=== PATIENT | female | born 1985 | race American Indian/Alaskan Native ===

== ENCOUNTER 2017-03-25 23:43 | Emergency (ER) | payer SELFPAY ==
[2017-03-25 23:52] VITALS: BMI 30.7
--- NOTE | 2017-03-26 00:49 | ED PDOC ---
Arrival/HPI <Erick Rubio - Last Filed: 03/26/17 00:55> - General Historian: Patient - History of Present Illness Time/Duration: Other (2 days) Symptom Onset: Sudden Symptom Course: Worsening Quality: Burning Severity Level: 2 <Micki Gibbs - Last Filed: 03/26/17 01:50> - General Chief Complaint: ENT Problem Time Seen by Provider: 03/26/17 00:46 - History of Present Illness Narrative History of Present Illness (Text): 03/26/17 00:46 31yr old female presents today with a 2 day history of sore throat. Patient describes a burning sensation in the throat that started after eating cake. Patient states the pain started shortly after eating cake that came from [place]. Patient questions whether it may have been made with something that irritated throat. She denies feeling of throat closing. Patient denies difficulty breathing or swallowing. Patient describes only a burning sensation worse with swallowing, worsening over the past 2 days. (Micki Gibbs) Past Medical History - Provider Review Nursing Documentation Reviewed: Yes - Travel History Have you recently traveled outside [place] w/in the past 3 mons?: No - Infectious Disease Hx of Infectious Diseases: None - Past Medical History Past Medical History: No Previous - Cardiac Hx Cardiac Disorders: No - Pulmonary Hx Respiratory Disorders: No - Neurological Hx Neurological Disorder: No - HEENT Hx HEENT Disorder: No - Renal Hx Renal Disorder: No - Endocrine/Metabolic Hx Endocrine Disorders: No Other/Comment: gestational diabetes - Hematological/Oncological Hx Blood Disorders: No - Integumentary Hx Dermatological Disorder: No - Musculoskeletal/Rheumatological Hx Musculoskeletal Disorders: No - Gastrointestinal Hx Gastrointestinal Disorders: No Hx Gastroesophageal Reflux: ("I HAD AN ULCER") - Genitourinary/Gynecological Hx Genitourinary Disorders: Yes Other/Comment: placenta previa/breast feeding - Psychiatric Hx Psychophysiologic Disorder: No Hx Substance Use: No - Past Surgical History Past Surgical History: No Previous - Surgical History Hx Section: Yes (X2) - Anesthesia Hx Anesthesia: No Hx Anesthesia Reactions: No Hx Malignant Hyperthermia: No - Suicidal Assessment Feels Threatened In Home Enviroment: No <Micki Gibbs - Last Filed: 03/26/17 01:50> Family/Social History - Physician Review Nursing Documentation Reviewed: Yes Family/Social History: Unknown Family HX Smoking Status: Never Smoked Hx Alcohol Use: No Hx Substance Use: No Hx Substance Use Treatment: No <Micki Gibbs - Last Filed: 03/26/17 01:50> Allergies/Home Meds <Erick Rubio - Last Filed: 03/26/17 00:55> <Micki Gibbs - Last Filed: 03/26/17 01:50> Allergies/Adverse Reactions: Allergies morphine Allergy (Verified 01/16/17 05:05) HEADACHE Review of Systems - Review of Systems Constitutional: absent: Fatigue, Fevers ENT: Sore Throat. absent: Sinus Congestion Respiratory: absent: SOB, Cough Cardiovascular: absent: Chest Pain, Palpitations Gastrointestinal: Other (acid reflux). absent: Abdominal Pain, Nausea, Vomiting Genitourinary Female: absent: Dysuria, Frequency, Hematuria Musculoskeletal: absent: Arthralgias, Back Pain, Neck Pain Skin: absent: Rash, Pruritis Neurological: absent: Headache, Dizziness Psychiatric: absent: Anxiety, Depression <Micki Gibbs - Last Filed: 03/26/17 01:50> Physical Exam Vital Signs Reviewed: Yes Temperature: Afebrile Blood Pressure: Normal Pulse: Regular Respiratory Rate: Normal Appearance: Positive for: Well-Appearing, Non-Toxic, Comfortable Pain Distress: None Mental Status: Positive for: Alert and Oriented X 3 - Systems Exam Head: Present: Atraumatic Conjunctiva: Present: Normal Ears: Present: Normal, NORMAL TM Mouth: Present: Moist Mucous Membranes Pharnyx: Present: ERYTHEMA. No: EXUDATE, TONSILS ENLARGED, Peritonsilar Swelling, Uvular Deviation, Muffled/Hoarse Voice, Strider, Soft Palate/Uvular Edema Nose (External): Present: Atraumatic Nose (Internal): Present: Normal Inspection Neck: Present: Normal Range of Motion, Trachea Midline. No: Lymphadenopathy Respiratory/Chest: Present: Clear to Auscultation, Good Air Exchange. No: Respiratory Distress, Accessory Muscle Use Cardiovascular: Present: Regular Rate and Rhythm, Normal S1, S2. No: Murmurs Neurological: Present: GCS=15, Speech Normal Skin: Present: Warm, Dry, Normal Color. No: Rashes Psychiatric: Present: Alert, Oriented x 3 <Micki Gibbs - Last Filed: 03/26/17 01:50> Vital Signs Temp Pulse Resp BP Pulse Ox 03/25/17 23:52 98.7 F 74 16 136/88 100 Medical Decision Making <Erick Rubio - Last Filed: 03/26/17 00:55> <Micki Gibbs - Last Filed: 03/26/17 01:50> ED Course and Treatment: 03/26/17 00:49 Patient is nontoxic well appearing in no distress. Vital signs are stable Tolerating p.o. fluids and solids Motrin 600 mg p.o. amoxicillin 500mg po pepcid po Decadron 10 mg IM Patient reassessment: Patient feeling better after medications, vital signs stable. Moist mucous membranes. I advised follow up with primary care physician within the next 2 days, advised to increase fluids take medications as prescribed and return if symptoms worsen persist or if new symptoms develop. advised f/u with ENt specialist. advised immediate return if symptoms worsen,persist or if new symptoms develop. IMPRESSION; pharyngitis Motrin every 6 hours as needed for pain/fever reduction Increase fluids Amoxicillin 3 times daily x10 days pepcid once daily Follow up primary care physician within the next 2 days Follow up with the ENT specialist within the next 2 days. Saltwater gargles, throat lozenges Return if symptoms worsen persist or if the symptoms develop (Micki Gibbs) - Medication Orders Current Medication Orders: Discontinued Medications Amoxicillin (Amoxil 500 Mg Cap) 500 mg PO STAT STA PRN Reason: Protocol Stop: 03/26/17 00:56 Last Admin: 03/26/17 01:21 Dose: 500 mg Dexamethasone (Decadron Inj) 10 mg IM STAT STA Stop: 03/26/17 00:57 Last Admin: 03/26/17 01:21 Dose: 10 mg Famotidine (Pepcid) 40 mg PO STAT STA Stop: 03/26/17 00:56 Last Admin: 03/26/17 01:21 Dose: 40 mg - PA / REMOVABLE PROSTHODONTIST / Resident Statement / has reviewed & agrees with the documentation as recorded. <Erick Rubio - Last Filed: 03/26/17 00:55> Disposition/Present on Arrival <Erick Rubio - Last Filed: 03/26/17 00:55> - Present on Arrival Any Indicators Present on Arrival: No History of DVT/PE: No History of Uncontrolled Diabetes: No Urinary Catheter: No History of Decub. Ulcer: No History Surgical Site Infection Following: None - Disposition Have Diagnosis and Disposition been Completed?: Yes Disposition Time: 01:49 Patient Plan: Discharge <Micki Gibbs - Last Filed: 03/26/17 01:50> - Disposition Diagnosis: Pharyngitis Disposition: HOME/ ROUTINE Condition: GOOD Additional Instructions: Motrin every 6 hours as needed for pain/fever reduction Increase fluids Amoxicillin 3 times daily x10 days pepcid once daily Follow up primary care physician within the next 2 days Follow up with the ENT specialist within the next 2 days. Saltwater gargles, throat lozenges Return if symptoms worsen persist or if the symptoms develop Prescriptions: Amoxicillin 500 mg PO TID #30 tab Famotidine [Pepcid] 20 mg PO DAILY #30 tab Ibuprofen [Motrin] 600 mg PO Q6H PRN #20 tab PRN Reason: pain/fever reduction Referrals: Barrett Glover DO [Staff Provider] - Follow up with primary [facility] [place] [Outside] - Follow up with primary Ana Hendrix MD [Staff Provider] - Follow up with primary Forms: WORK NOTE
[2017-03-26 02:03] VITALS: BP 130/82; PULSE 72; RESP 18; TEMP 98.4; O2SAT 99
== END 2017-03-26 02:03 | disposition home or self-care (01) ==
LOC: ED 23:43
DX: J02.9 Acute pharyngitis, unspecified (principal)
CPT/HCPCS: 96372; 99283; J1100

== ENCOUNTER 2017-09-18 21:01 | Emergency (ER) | payer SELFPAY ==
[2017-09-18 21:31] VITALS: TEMP 98.1
[2017-09-18 21:37] VITALS: BMI 28.1
--- NOTE | 2017-09-18 21:44 | ED PDOC ---
Arrival/HPI - General Chief Complaint: Chest Pain Time Seen by Provider: 09/18/17 21:33 Historian: Patient - History of Present Illness Narrative History of Present Illness (Text): 09/18/17 21:43 Cathleen Iyer is a 32 year old female, whose past medical history includes gestational diabetes, who presents to the ED complaining of intermittent chest heaviness since waking up this morning. Patient states she has experienced similar episodes previously, notes aspirin usually alleviates symptoms, but denies any significant relief after taking aspirin earlier today. Patient notes mother has a history of CAD with recent coronary stent placement a few years prior. Patient denies any fever, chills, shortness of breath, nausea , vomiting, diarrhea, back pain, neck pain, headache, dizziness, or any other complaints. Time/Duration: Other (this morning) Symptom Onset: Gradual Symptom Course: Unchanged, Intermittent Quality: Other (Heaviness) Activities at Onset: Light Context: Home Past Medical History - Provider Review Nursing Documentation Reviewed: Yes - Infectious Disease Hx of Infectious Diseases: None - Past Medical History Past Medical History: No Previous - Cardiac Hx Cardiac Disorders: No - Pulmonary Hx Respiratory Disorders: No - Neurological Hx Neurological Disorder: No - HEENT Hx HEENT Disorder: No - Renal Hx Renal Disorder: No - Endocrine/Metabolic Hx Endocrine Disorders: No Other/Comment: gestational diabetes - Hematological/Oncological Hx Blood Disorders: No - Integumentary Hx Dermatological Disorder: No - Musculoskeletal/Rheumatological Hx Musculoskeletal Disorders: No - Gastrointestinal Hx Gastrointestinal Disorders: No Hx Gastroesophageal Reflux: ("I HAD AN ULCER") - Genitourinary/Gynecological Hx Genitourinary Disorders: Yes Other/Comment: placenta previa/breast feeding - Psychiatric Hx Psychophysiologic Disorder: No Hx Substance Use: No - Past Surgical History Past Surgical History: No Previous - Surgical History Hx Section: Yes (X2) - Anesthesia Hx Anesthesia: No Hx Anesthesia Reactions: No Hx Malignant Hyperthermia: No - Suicidal Assessment Feels Threatened In Home Enviroment: No Family/Social History - Physician Review Nursing Documentation Reviewed: Yes Family/Social History: Unknown Family HX Smoking Status: Never Smoked Hx Alcohol Use: No Hx Substance Use: No Hx Substance Use Treatment: No Allergies/Home Meds Allergies/Adverse Reactions: Allergies morphine Allergy (Verified 01/16/17 05:05) HEADACHE Home Medications: Home Meds Medication Instructions Recorded Confirmed No Known Home Med 09/18/17 09/18/17 Review of Systems - Physician Review All systems were reviewed & negative as marked: Yes - Review of Systems Constitutional: Normal. absent: Fevers Eyes: Normal ENT: Normal Respiratory: Normal. absent: SOB, Cough Cardiovascular: Chest Pain Gastrointestinal: Normal. absent: Abdominal Pain, Diarrhea, Nausea, Vomiting Genitourinary Female: Normal. absent: Dysuria, Frequency, Hematuria, Urine Output Changes Musculoskeletal: Normal. absent: Back Pain, Neck Pain Skin: Normal. absent: Rash Neurological: Normal. absent: Headache, Dizziness Endocrine: Normal Hemo/Lymphatic: Normal Psychiatric: Normal Physical Exam Vital Signs Reviewed: Yes Vital Signs Temp Pulse Resp BP Pulse Ox 09/18/17 23:16 71 16 107/65 99 09/18/17 21:31 98.1 F 70 18 112/78 100 Temperature: Afebrile Blood Pressure: Normal Pulse: Regular Respiratory Rate: Normal Appearance: Positive for: Well-Appearing, Non-Toxic, Comfortable Pain Distress: None Mental Status: Positive for: Alert and Oriented X 3 - Systems Exam Head: Present: Atraumatic, Normocephalic Pupils: Present: PERRL Extroacular Muscles: Present: EOMI Conjunctiva: Present: Normal Mouth: Present: Moist Mucous Membranes Neck: Present: Normal Range of Motion Respiratory/Chest: Present: Clear to Auscultation, Good Air Exchange. No: Respiratory Distress, Accessory Muscle Use Cardiovascular: Present: Regular Rate and Rhythm, Normal S1, S2. No: Murmurs Abdomen: Present: Normal Bowel Sounds. No: Tenderness, Distention, Peritoneal Signs Back: Present: Normal Inspection Upper Extremity: Present: Normal Inspection. No: Cyanosis, Edema Lower Extremity: Present: Normal Inspection. No: Edema Neurological: Present: GCS=15, CN II-XII Intact, Speech Normal Skin: Present: Warm, Dry, Normal Color. No: Rashes Psychiatric: Present: Alert, Oriented x 3, Normal Insight, Normal Concentration Medical Decision Making ED Course and Treatment: 09/18/17 21:43 Impression: 32 year old female c/o intermittent chest heaviness. Plan: -- EKG -- CXR -- Labs, cardiac enzymes, D-dimer -- Reassess and disposition Progress Notes: Reviewed EKG, NSR at [address] bpm[address] Non-specific ST/T wave changes. 09/18/17 23:48 Reviewed Chest X ray. Shows no acute processes. 09/19/17 00:34 Discussed results and plan with pt. Pt was offered hospital admission for further evaluation of symptoms. Pt states she does not wish to stay. Pt was explained the risks of leaving against medical advice including, but not limited to, NM and . Patient is choosing to leave against medical advice. I have personally explained to the patient that choosing to do so may result in permanent bodily harm or . I have discussed at great length that without further evaluation and monitoring there may be unforeseen circumstances and/or deterioration causing permanent bodily harm or as a result of their choice. The patient is alert, oriented, and shows the mental capacity to make clear decisions regarding the patients health care at this time. The patient continues to wish to leave against medical advice. Patient is aware of the importance of following up as instructed. The patient has been advised that they should return to the ED immediately if they change their mind at any time, or if their condition begins to change or worsen in any way. 09/19/17 00:36 - Lab Interpretations Lab Results: 09/18/17 22:25 09/18/17 22:25 Lab Results 09/18/17 22:25: WBC 8.7 D, RBC 4.23, Hgb 13.0, Hct 40.1, MCV 94.8, MCH 30.7, MCHC 32.4, RDW 13.2, Plt Count 190, MPV 12.1 H 09/18/17 22:25: Sodium 138, Potassium 3.9, Chloride 101, Carbon Dioxide 30, Anion Gap 12, BUN 9, Creatinine 0.7, Est GFR ( Amer) > 60, Est GFR (Non- Af Amer) > 60, Random Glucose 104, Calcium 9.7, Total Bilirubin 0.6, AST 26, ALT 29, Alkaline Phosphatase 63, Lactate Dehydrogenase 422, Total Creatine Kinase 157, Troponin I < 0.01 D, Total Protein 7.7, Albumin 4.3, Globulin 3.4, Albumin/Globulin Ratio 1.2 09/18/17 22:25: PT 13.7 H, INR 1.25 H, APTT 28.5, D-Dimer, Quantitative < 200 I have reviewed the lab results: Yes - RAD Interpretation Radiology Orders: 09/18/17 21:44 CHEST PORTABLE [RAD] Stat Subsystems Engineer: ED Physician - EKG Interpretation Interpreted by ED Physician: Yes Type: 12 lead EKG - Medication Orders Current Medication Orders: Discontinued Medications Aspirin (Aspirin) 325 mg PO ONCE STA Stop: 09/18/17 23:41 Last Admin: 09/19/17 00:20 Dose: 325 mg - Scribe Statement The provider has reviewed the documentation as recorded by the Angelina North Provider Scribe Attestation: All medical record entries made by the Scribe were at my direction and personally dictated by me. I have reviewed the chart and agree that the record accurately reflects my personal performance of the history, physical exam, medical decision making, and the department course for this patient. I have also personally directed, reviewed, and agree with the discharge instructions and disposition. Disposition/Present on Arrival - Present on Arrival Any Indicators Present on Arrival: No History of DVT/PE: No History of Uncontrolled Diabetes: No Urinary Catheter: No History of Decub. Ulcer: No History Surgical Site Infection Following: None - Disposition Have Diagnosis and Disposition been Completed?: Yes Diagnosis: Chest pain Disposition: AGAINST MEDICAL ADVICE Disposition Time: 00:34 Patient Problems: Current Active Problems Problem Status Onset Chest pain Acute Condition: STABLE Discharge Instructions (ExitCare): Chest Pain (ED) Referrals: Ruth Amor, [Primary Care Provider] - Follow up with primary Forms: [employer] (German)
[2017-09-18 22:48] LABS: HEMATOCRIT 40.1 % (36.0-48.0); MEAN CELL VOLUME 94.8 fl (80.0-105.0); MEAN CORPUSCULAR HEMOGLOBIN 30.7 pg (25.0-35.0); MEAN CORPUSCULAR HGB CONC 32.4 g/dl (31.0-37.0); MEAN PLATELET VOLUME 12.1 fl (7.0-11.0); RED CELL DISTRIBUTION WIDTH 13.2 % (11.5-14.5); WHITE BLOOD COUNT 8.7 10^3/ul (4.5-11.0)
[2017-09-18 22:49] LABS: ALB/GLOB RATIO 1.2 (1.1-1.8); ALKALINE PHOSPHATASE 63 U/L (38-126); ALT/SGPT 29 U/L (7-56); AST/SGOT 26 U/L (14-36); BILIRUBIN,TOTAL 0.6 mg/dL (0.2-1.3); BLOOD UREA NITROGEN 9 mg/dL (7-21); CALCIUM 9.7 mg/dL (8.4-10.5); CARBON DIOXIDE 30 mmol/L (21-33); CHLORIDE 101 mmol/L (98-107); GFR AFRICAN-AMERICAN > 60; GLUCOSE,RANDOM 104 mg/dL (70-110); POTASSIUM 3.9 mmol/L (3.6-5.0); SODIUM 138 mmol/L (132-148); TOTAL PROTEIN 7.7 g/dL (5.8-8.3)
[2017-09-18 22:58] LABS: D DIMER < 200 ng/mL (0-243); INR 1.25 (0.93-1.08); PARTIAL THROMBOPLASTIN TIME 28.5 Seconds (25.1-36.5)
[2017-09-18 23:04] LABS: TROPONIN I < 0.01 ng/mL
[2017-09-18 23:16] VITALS: RESP 16
[2017-09-19 01:40] VITALS: BP 117/82; PULSE 75; O2SAT 100
--- NOTE | 2017-09-19 08:44 | RAD ---
HISTORY: chest pain COMPARISON: 01/16/2017 FINDINGS: LUNGS: The lungs are well inflated and clear. PLEURA: No significant pleural effusion identified, no pneumothorax apparent. CARDIOVASCULAR: Normal. OSSEOUS STRUCTURES: No significant abnormalities. VISUALIZED UPPER ABDOMEN: Normal. OTHER FINDINGS: None. IMPRESSION: No active pulmonary disease.
--- NOTE | 2017-09-19 22:10 | CARD ---
APPROVED REPORT EKG Measurement Heart [id number] <Conclusion> Normal sinus rhythm normal ECG
== END 2017-09-19 00:15 | disposition left against medical advice (07) ==
LOC: ED 21:01
DX: R07.9 Chest pain, unspecified (principal); Z82.49 Family history of ischemic heart disease and other diseases of the circulatory system

== ENCOUNTER 2017-12-22 21:10 | Emergency (ER) | payer SELFPAY ==
[2017-12-22 22:25] VITALS: BMI 30.7
[2017-12-22 22:26] VITALS: RESP 18; TEMP 98.9; O2SAT 100
[2017-12-22] MEDS ORDERED: Sodium Chloride 0.9% 1,000 ML IV STA (22:35)
--- NOTE | 2017-12-22 22:36 | ED PDOC ---
Arrival/HPI - General Chief Complaint: Abdominal Pain Time Seen by Provider: 12/22/17 21:58 Historian: Patient - History of Present Illness Narrative History of Present Illness (Text): 12/22/17 22:33 Cathleen Iyer is a 32 year old female, whose past medical history includes gestational diabetes, who presents to the ED complaining of abdominal pain. Patient states she has been experienced sharp RLQ abdominal pain for the past 2 days. Patient denies any fever, chills, chest pain, nausea, vomiting, diarrhea, urinary symptoms, back pain, or any other complaints. Time/Duration: < week (2 days) Symptom Onset: Gradual Symptom Course: Unchanged Activities at Onset: Light Context: Work Past Medical History - Provider Review Nursing Documentation Reviewed: Yes - Infectious Disease Hx of Infectious Diseases: None - Past Medical History Past Medical History: No Previous - Cardiac Hx Cardiac Disorders: No - Pulmonary Hx Respiratory Disorders: No - Neurological Hx Neurological Disorder: No - HEENT Hx HEENT Disorder: No - Renal Hx Renal Disorder: No - Endocrine/Metabolic Hx Endocrine Disorders: No Other/Comment: gestational diabetes - Hematological/Oncological Hx Blood Disorders: No - Integumentary Hx Dermatological Disorder: No - Musculoskeletal/Rheumatological Hx Musculoskeletal Disorders: No - Gastrointestinal Hx Gastrointestinal Disorders: No Hx Gastroesophageal Reflux: ("I HAD AN ULCER") - Genitourinary/Gynecological Hx Genitourinary Disorders: Yes Other/Comment: placenta previa/breast feeding - Psychiatric Hx Psychophysiologic Disorder: No Hx Substance Use: No - Past Surgical History Past Surgical History: No Previous - Surgical History Hx Section: Yes (X2) - Anesthesia Hx Anesthesia: Yes Hx Anesthesia Reactions: No Hx Malignant Hyperthermia: No - Suicidal Assessment Feels Threatened In Home Enviroment: No Family/Social History - Physician Review Nursing Documentation Reviewed: Yes Family/Social History: Unknown Family HX Smoking Status: Never Smoked Hx Alcohol Use: No Hx Substance Use: No Hx Substance Use Treatment: No Allergies/Home Meds Allergies/Adverse Reactions: Allergies morphine Allergy (Verified 01/16/17 05:05) HEADACHE Review of Systems - Physician Review All systems were reviewed & negative as marked: Yes - Review of Systems Constitutional: Normal. absent: Fevers Eyes: Normal ENT: Normal Respiratory: Normal. absent: SOB, Cough Cardiovascular: Normal Gastrointestinal: Abdominal Pain. absent: Diarrhea, Nausea, Vomiting Genitourinary Female: Normal. absent: Dysuria, Frequency, Hematuria, Urine Output Changes Musculoskeletal: Normal. absent: Back Pain, Neck Pain Skin: Normal. absent: Rash Neurological: Normal. absent: Headache, Dizziness Endocrine: Normal Hemo/Lymphatic: Normal Psychiatric: Normal Physical Exam Vital Signs Reviewed: Yes Vital Signs Temp Pulse Resp BP Pulse Ox 12/22/17 22:26 98.9 F 76 18 117/78 100 Temperature: Afebrile Blood Pressure: Normal Pulse: Regular Respiratory Rate: Normal Appearance: Positive for: Well-Appearing, Non-Toxic, Comfortable Pain Distress: None Mental Status: Positive for: Alert and Oriented X 3 - Systems Exam Head: Present: Atraumatic, Normocephalic Pupils: Present: PERRL Extroacular Muscles: Present: EOMI Conjunctiva: Present: Normal Mouth: Present: Moist Mucous Membranes Neck: Present: Normal Range of Motion Respiratory/Chest: Present: Clear to Auscultation, Good Air Exchange. No: Respiratory Distress, Accessory Muscle Use Cardiovascular: Present: Regular Rate and Rhythm, Normal S1, S2. No: Murmurs Abdomen: Present: Tenderness (mild right lower abdomen), Normal Bowel Sounds. No: Distention, Peritoneal Signs, Rebound, Guarding, Hernias Back: Present: Normal Inspection Upper Extremity: Present: Normal Inspection. No: Cyanosis, Edema Lower Extremity: Present: Normal Inspection. No: Edema Neurological: Present: GCS=15, CN II-XII Intact, Speech Normal, Motor Func Grossly Intact, Normal Sensory Function Skin: Present: Warm, Dry, Normal Color. No: Rashes Psychiatric: Present: Alert, Oriented x 3, Normal Insight, Normal Concentration Medical Decision Making ED Course and Treatment: 12/22/17 22:33 Impression: 32 year old female complaining of RLQ pain for 2 days. Plan: -- CT Abdomen and Pelvis with IV contrast -- Labs, lipase -- Urinalysis -- IV fluids -- Reassess and disposition Prior Visits: Notes and results from previous visits were reviewed. Progress Notes: 12/23/17 01:37 CT Abdomen and Pelvis shows: Lower thorax: There is bibasilar atelectasis. Small hiatal hernia. ABDOMEN: Liver: There are hepatic hypodensities too small to characterize. These were seen on prior examination from April 24, 2016 and represent benign etiology. Gallbladder and bile ducts: Contracted gallbladder. Pancreas: Unremarkable. No mass. No ductal dilation. Spleen: Unremarkable. No splenomegaly. Adrenals: Unremarkable. No mass. Kidneys and ureters: Tiny right renal hypodensity to small to characterize unchanged from prior examination and represents a tiny cyst. No hydronephrosis. Stomach and bowel: Diverticulosis. There are nonspecific fluid filled small bowel loops. These findings can represent ileus versus enteritis versus slow transit versus peristalsis. No obstruction. Appendix: Appendix is seen and is top normal in thickness measuring 6 to 7 mm with no periappendiceal stranding. PELVIS: Bladder: Partially distended bladder. Reproductive: There is enhancing involuting right ovarian cyst measuring 2.5 x 1.2x 2.7 cm with surrounding fluid. Heterogeneous uterus. ABDOMEN and PELVIS: Intraperitoneal space: Moderate amount of free pelvic fluid. No free air. Bones/joints: No acute fracture. No dislocation. Soft tissues: There is a fat-containing umbilical hernia. Vasculature: Unremarkable. No abdominal aortic aneurysm. Lymph nodes: Subcentimeter mesenteric lymph nodes. IMPRESSION: 1. Moderate amount of free pelvic fluid. 2. There is enhancing involuting right ovarian cyst measuring 2.5 x 1.2x 2.7 cm with surrounding fluid. 12/23/17 01:45 On reevaluation the patient feels better and is in no acute distress. Patient is stable for discharge. Patient was instructed to follow up with physician/ clinic in 1-2 days or return if symptoms persist/worsen or new concerning symptoms arise. - Lab Interpretations Lab Results: 12/22/17 22:52 12/22/17 22:52 Lab Results 12/22/17 22:52: Urine Color Yellow, Urine Appearance Clear, Urine pH 6.0, Ur Specific Elsie >= 1.030, Urine Protein Negative, Urine Glucose (UA) Negative, Urine Ketones Negative, Urine Blood Trace-lysed H, Urine Nitrate Negative, Urine Bilirubin Negative, Urine Urobilinogen 0.2, Ur Leukocyte Esterase Negative , Urine RBC 1 - 3, Urine WBC 2 - 5, Ur Epithelial Cells 4 - 5, Urine Bacteria Few, Urine HCG, Qual Negative 12/22/17 22:52: WBC 10.3, RBC 4.28, Hgb 13.2, Hct 40.4, MCV 94.4, MCH 30.8, MCHC 32.7, RDW 13.7, Plt Count 190, MPV 12.2 H 12/22/17 22:52: Sodium 141, Potassium 3.9, Chloride 102, Carbon Dioxide 25, Anion Gap 18, BUN 10, Creatinine 0.7, Est GFR ( Amer) > 60, Est GFR (Non- Af Amer) > 60, Random Glucose 104, Calcium 10.4, Total Bilirubin 0.2, AST 23, ALT 23, Alkaline Phosphatase 51, Total Protein 7.7, Albumin 4.4, Globulin 3.4, Albumin/Globulin Ratio 1.3, Lipase 126 12/22/17 22:52: PT 13.4 H, INR 1.17 H, APTT 33.2 I have reviewed the lab results: Yes - RAD Interpretation Radiology Orders: 12/22/17 22:33 ABD & PELVIS IV CONTRAST ONLY [CT] Stat Decoration Checker: Radiologist - Medication Orders Current Medication Orders: Discontinued Medications Sodium Chloride (Sodium Chloride 0.9%) 1,000 mls @ 999 mls/hr IV .Q1H1M STA Stop: 12/22/17 23:35 Last Admin: 12/22/17 23:03 Dose: 999 mls/hr eMAR Start Stop Document 12/22/17 23:03 AD (Rec: 12/22/17 23:03 AD [id number]) Intravenous Solution Start Date 12/22/17 Start Time 23:03 Ketorolac Tromethamine (Toradol) 30 mg IVP ONCE ONE Stop: 12/23/17 01:43 - Scribe Statement The provider has reviewed the documentation as recorded by the Scribe Tanya North All medical record entries made by the Scribe were at my direction and personally dictated by me. I have reviewed the chart and agree that the record accurately reflects my personal performance of the history, physical exam, medical decision making, and the department course for this patient. I have also personally directed, reviewed, and agree with the discharge instructions and disposition. Disposition/Present on Arrival - Present on Arrival Any Indicators Present on Arrival: No History of DVT/PE: No History of Uncontrolled Diabetes: No Urinary Catheter: No History of Decub. 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
[2017-12-22 23:04] LABS: HEMOGLOBIN 13.2 g/dL (12.0-16.0); MEAN CELL VOLUME 94.4 fl (80.0-105.0); MEAN CORPUSCULAR HEMOGLOBIN 30.8 pg (25.0-35.0); MEAN CORPUSCULAR HGB CONC 32.7 g/dl (31.0-37.0); MEAN PLATELET VOLUME 12.2 fl (7.0-11.0); RBC 4.28 10^6/uL (3.5-6.1); RED CELL DISTRIBUTION WIDTH 13.7 % (11.5-14.5); URINE BILIRUBIN NEGATIVE (NEGATIVE); URINE BLOOD TRACE-LYSED (NEGATIVE); URINE GLUCOSE (UA) NEGATIVE (NEGATIVE); URINE LEUKOCYTE ESTERASE NEGATIVE Leu/uL (NEGATIVE); URINE NITRATE NEGATIVE (NEGATIVE); URINE PROTEIN NEGATIVE mg/dL (<30 mg/dL); URINE UROBILINOGEN 0.2 E.U./dL (<1 E.U./dL); WHITE BLOOD COUNT 10.3 10^3/ul (4.5-11.0)
[2017-12-22 23:06] LABS: URINE APPEARANCE CLEAR (CLEAR); URINE COLOR YELLOW (YELLOW)
[2017-12-22 23:10] LABS: URINE BACTERIA FEW (NEG)
[2017-12-22 23:11] LABS: ALB/GLOB RATIO 1.3 (1.1-1.8); ALBUMIN 4.4 g/dL (3.0-4.8); ALT/SGPT 23 U/L (7-56); AST/SGOT 23 U/L (14-36); BLOOD UREA NITROGEN 10 mg/dL (7-21); CALCIUM 10.4 mg/dL (8.4-10.5); GFR AFRICAN-AMERICAN > 60; GFR NON-AFRICAN AMERICAN > 60; INR 1.17 (0.93-1.08); LIPASE 126 U/L (23-300); PARTIAL THROMBOPLASTIN TIME 33.2 Seconds (25.1-36.5); PROTHROMBIN TIME 13.4 SECONDS (9.4-12.5)
[2017-12-22 23:17] LABS: HCG,QUALITATIVE URINE NEGATIVE (NEGATIVE)
[2017-12-22] MEDS ORDERED: Iohexol 350 MG/100 ML VIAL ONE (23:41)
--- NOTE | 2017-12-23 01:35 | CT ---
EXAM: CT Abdomen and Pelvis With Intravenous Contrast CLINICAL HISTORY: 32 years old, female; Pain; Abdominal pain; Generalized; Prior surgery; Surgery date: 6+ months TECHNIQUE: Axial computed tomography images of the abdomen and pelvis with intravenous contrast. All CT scans at this facility use one or more dose reduction techniques, viz.: automated exposure control; ma/kV adjustment per patient size (including targeted exams where dose is matched to indication; i.e. head); or iterative reconstruction technique. 664 images are submitted. Coronal and sagittal reformatted images were created and reviewed. CONTRAST: 96 mL of OMNI 350 administered intravenously. COMPARISON: CT - ABD PELVIS IV CONTRAST ONLY 2016-04-24 09:00 FINDINGS: Lower thorax: There is bibasilar atelectasis. Small hiatal hernia. ABDOMEN: Liver: There are hepatic hypodensities too small to characterize. These were seen on prior examination from April 24, 2016 and represent benign etiology. Gallbladder and bile ducts: Contracted gallbladder. Pancreas: Unremarkable. No mass. No ductal dilation. Spleen: Unremarkable. No splenomegaly. Adrenals: Unremarkable. No mass. Kidneys and ureters: Tiny right renal hypodensity to small to characterize unchanged from prior examination and represents a tiny cyst. No hydronephrosis. Stomach and bowel: Diverticulosis. There are nonspecific fluid filled small bowel loops. These findings can represent ileus versus enteritis versus slow transit versus peristalsis. No obstruction. Appendix: Appendix is seen and is top normal in thickness measuring 6 to 7 mm with no periappendiceal stranding. PELVIS: Bladder: Partially distended bladder. Reproductive: There is enhancing involuting right ovarian cyst measuring 2.5 x 1.2x 2.7 cm with surrounding fluid. Heterogeneous uterus. ABDOMEN and PELVIS: Intraperitoneal space: Moderate amount of free pelvic fluid. No free air. Bones/joints: No acute fracture. No dislocation. Soft tissues: There is a fat-containing umbilical hernia. Vasculature: Unremarkable. No abdominal aortic aneurysm. Lymph nodes: Subcentimeter mesenteric lymph nodes. IMPRESSION: 1. Moderate amount of free pelvic fluid. 2. There is enhancing involuting right ovarian cyst measuring 2.5 x 1.2x 2.7 cm with surrounding fluid.
[2017-12-23 02:41] VITALS: BP 120/82; PULSE 85
== END 2017-12-23 02:15 | disposition home or self-care (01) ==
LOC: ED 21:10
DX: N83.201 Unspecified ovarian cyst, right side (principal)
CPT/HCPCS: 74177; 80053; 81001; 83690; 84703; 85027; 85610; 85730; 96374; 99283; J1885; J7040; Q9967